=== PATIENT | male | born 1975 | race Hispanic/Latino ===

== ENCOUNTER 2018-11-21 13:27 | Emergency (ER) | payer MEDICARE | END 2018-11-21 14:20 | disposition left against medical advice (07) | LOC: EDH 13:27 | DX: M54.2 Cervicalgia (principal); M54.9 Dorsalgia, unspecified; F31.9 Bipolar disorder, unspecified; Z72.0 Tobacco use; Z88.0 Allergy status to penicillin; Z53.21 Procedure and treatment not carried out due to patient leaving prior to being seen by health care provider ==

== ENCOUNTER 2019-04-03 17:51 | Emergency (ER) | payer OTHER, MEDICARE ==
[2019-04-03] MEDS ORDERED: LIDOCAINE 5% TOPICAL PATCH TP ONE (19:31)
[2019-04-03] MEDS ORDERED: ACETAMINOPHEN EXTRA STRENGTH 500 MG TABLET ONE (19:32)
== END 2019-04-03 19:41 | disposition home or self-care (01) ==
LOC: EDH 17:51
DX: S93.401A Sprain of unspecified ligament of right ankle, initial encounter (principal); S39.012A Strain of muscle, fascia and tendon of lower back, initial encounter; F31.9 Bipolar disorder, unspecified; F90.9 Attention-deficit hyperactivity disorder, unspecified type; Z88.0 Allergy status to penicillin; Z88.6 Allergy status to analgesic agent; Z72.0 Tobacco use; W18.39XA Other fall on same level, initial encounter; Y93.01 Activity, walking, marching and hiking; Y92.89 Other specified places as the place of occurrence of the external cause; Y99.8 Other external cause status
CPT/HCPCS: 73610